=== PATIENT | female | born 1965 | race Asian ===

== ENCOUNTER 2020-12-16 18:32 | Emergency (ER) | payer OTHER ==
[~2020-12-16] VITALS: Ht 152.4 cm; Wt 54.4 kg
[2020-12-16 21:31] VITALS: BP 115/71
[2020-12-16] MEDS ORDERED: ACET-1156 PO (22:17)
== END 2020-12-16 22:34 | disposition home or self-care (01) ==
LOC: ER 18:32
DX: S06.899A Other specified intracranial injury with loss of consciousness of unspecified duration, initial encounter (principal); S60.812A Abrasion of left wrist, initial encounter; S40.212A Abrasion of left shoulder, initial encounter; G44.319 Acute post-traumatic headache, not intractable; Y04.8XXA Assault by other bodily force, initial encounter; Y93.89 Activity, other specified; Y92.89 Other specified places as the place of occurrence of the external cause; Y99.8 Other external cause status
CPT/HCPCS: 29125; 70450; 70486; 72125; 73110; 93005